=== PATIENT | female | born 2000 | race Caucasian/White ===

== ENCOUNTER 2022-12-07 17:40 | Emergency (ER) | payer OTHER ==
[2022-12-07] MEDS ORDERED: Lidocaine 1% PF 5 ML VIAL ONE (18:07)
[2022-12-07] MEDS ORDERED: Boostrix 0.5 ML (Tdap) VIAL (>/=7 yrs of age) ONE (18:26)
== END 2022-12-07 18:51 | disposition home or self-care (01) ==
LOC: BURERS 17:40
DX: S61.213A Laceration without foreign body of left middle finger without damage to nail, initial encounter (principal); Z23 Encounter for immunization; W26.0XXA Contact with knife, initial encounter
CPT/HCPCS: 12001; 90715